=== PATIENT | female | born 1945 | race Caucasian/White ===

== ENCOUNTER → 2018-08-21 | Outpatient (CLI) | payer MEDICARE ==
--- NOTE | 2018-08-21 18:14 | Diagnostic Imaging Report ---
INDICATION: Intermittent left-sided pain FINDINGS: There is at least moderate severity lance colonic constipation. No findings of rectal impaction. No small bowel dilatation. IMPRESSION: Colonic constipation without overtly obstructive or impacted features. Dictated by: Dictated on workstation # [id number]
== END ==
LOC: RAD FS 15:32
PROVIDERS: ATTEND Nurse Practitioner Family
DX: K59.00 Constipation, unspecified (principal)
CPT/HCPCS: 74019

== ENCOUNTER 2018-09-26 21:02 | Emergency (ER) | payer MEDICARE ==
[~2018-09-26] VITALS: Ht 337.8 cm; Wt 84.8 kg
--- OUTSIDE RECORDS SUMMARY | 2018-09-26 21:06 | XMS REPORT ---
Author Author NIMISHA LINN [facility] Address Unknown Care Team Providers Care Cooperative Education Director Name Role Phone NIMISHA LINN Unavailable PROBLEMS Type Condition ICD9-CM Code [id number] Code Onset Dates Condition Status SNOMED Code Problem DTAP TEST V06.1 Active Assessment Dental examination Z01.20 Feb, Active [id number] ALLERGIES Substance Reaction Event Type Date Status Aspirin Unknown Drug Allergy Feb, Active SOCIAL HISTORY No smoking Hx information available PLAN OF CARE VITAL SIGNS Blood pressure systolic 143 mmHg 2016-02-23 Blood pressure diastolic 97 mmHg 2016-02-23 MEDICATIONS Medication Instructions Dosage Frequency Start Date End Date Duration Status Citalopram Hydrobromide Active Alprazolam Active Metoprolol Tartrate Active BuPROPion HCl (SR) Active Atorvastatin-Coenzyme Q10 Active RESULTS No Results PROCEDURES Procedure Date Ordered Related Diagnosis Body Site LTD ORAL EVALUATION - PROBLEM FOCUS Feb 23, 2016 PANORAMIC FILM SEE ALSO CODE [id number] Feb 23, 2016 IMMUNIZATIONS No Known Immunizations
--- OUTSIDE RECORDS SUMMARY | 2018-09-26 21:06 | XMS REPORT ---
Author Author NIMISHA LINN [facility] Address Unknown Care Team Providers Care Head Inspector Name Role Phone NIMISHA LINN Unavailable PROBLEMS Type Condition ICD9-CM Code [id number] Code Onset Dates Condition Status SNOMED Code Problem DTAP TEST V06.1 Active ALLERGIES No Information ENCOUNTERS Encounter Location Date Diagnosis [facility] [id number] [place] [address] [id number] Aug, Dental caries K02.9 [facility] [id number] [place] [address] [id number] Jul, Dental examination Z01.[id number] [place] [address] [id number] Jul, [facility] [id number] [place] [address] [id number] May, Dental caries K02.9 [facility] [id number] [place] [address] [id number] Feb, Dental examination Z01.20 [facility] [id number] [place] [address] [id number] Mar, Dental examination V72.[facility] [id number] [place] [phone] Jan, [facility] [id number] [place] [address] [id number] Jan, Dental examination V72.[facility] [id number] [place] [phone] Apr, IMMUNIZATIONS No Known Immunizations SOCIAL HISTORY Never Assessed REASON FOR VISIT PLAN OF CARE VITAL SIGNS MEDICATIONS Medication Instructions Dosage Frequency Start Date End Date Duration Status Valium 5 MG Orally 2 Tablets 1 hour prior appointment 2 Tablets night before treatment Jul, 1 days Active RESULTS No Results PROCEDURES No Known procedures INSTRUCTIONS MEDICATIONS ADMINISTERED No Known Medications MEDICAL (GENERAL) HISTORY Type Description Date Medical History Pneumonia Medical History surgery requiring rods, pins or screws Surgical History breast biopsy Surgical History hysterectomy Surgical History hernia Surgical History shoulder cuff Surgical History foot surgery- both feet Surgical History pancreas diverticulitis
--- OUTSIDE RECORDS SUMMARY | 2018-09-26 21:06 | XMS REPORT ---
Author Author NIMISHA LINN [facility] Address Unknown Care Team Providers Care Vessel Manager Name Role Phone NIMISHA LINN Unavailable PROBLEMS Type Condition ICD9-CM Code [id number] Code Onset Dates Condition Status SNOMED Code Problem DTAP TEST V06.1 Active Assessment Dental caries K02.9 May, Active [id number] ALLERGIES Substance Reaction Event Type Date Status Aspirin Unknown Drug Allergy May, Active SOCIAL HISTORY No smoking Hx information available PLAN OF CARE VITAL SIGNS Blood pressure systolic 128 mmHg 2016-05-10 Blood pressure diastolic 83 mmHg 2016-05-10 MEDICATIONS Unknown Medications RESULTS No Results PROCEDURES Procedure Date Ordered Related Diagnosis Body Site INTRAORL-PERIAPICAL 1 FILM [id number] May 10, 2016 INTRAORL-PERIAPICAL EA ADD FILM May 10, 2016 EXTRAC ERUPTED TOOTH/EXPOSED ROOT May 10, 2016 EXTRAC ERUPTED TOOTH/EXPOSED ROOT May 10, 2016 EXTRAC ERUPTED TOOTH/EXPOSED ROOT May 10, 2016 EXTRAC ERUPTED TOOTH/EXPOSED ROOT May 10, 2016 IMMUNIZATIONS No Known Immunizations
--- OUTSIDE RECORDS SUMMARY | 2018-09-26 21:06 | XMS REPORT ---
Author Author NIMISHA LINN Organization [facility] Address Unknown Care Team Providers Care Case Coordinator Name Role Phone NIMISHA LINN Unavailable PROBLEMS Type Condition ICD9-CM Code [id number] Code Onset Dates Condition Status SNOMED Code Problem DTAP TEST V06.1 Active ALLERGIES Substance Reaction Event Type Date Status Aspirin Unknown Drug Allergy Aug, Active SOCIAL HISTORY Never Assessed PLAN OF CARE Activity Details Follow Up 6 Weeks Reason:re-eval for maxime removal VITAL SIGNS Blood pressure systolic 136 mmHg 2016-09-01 Blood pressure diastolic 78 mmHg 2016-09-01 MEDICATIONS Medication Instructions Dosage Frequency Start Date End Date Duration Status Valium 5 MG Orally 2 Tablets 1 hour prior appointment 2 Tablets night before treatment Jul, 1 days Active Alprazolam Active BuPROPion HCl (SR) Active Metoprolol Tartrate Active Cranberry Active Centrum Silver Active Aspirin Active Atorvastatin-Coenzyme Q10 Active RESULTS No Results PROCEDURES Procedure Date Ordered Result Body Site EXTRAC ERUPTED TOOTH/EXPOSED ROOT Sep 01, 2016 EXTRAC ERUPTED TOOTH/EXPOSED ROOT Sep 01, 2016 EXTRAC ERUPTED TOOTH/EXPOSED ROOT Sep 01, 2016 EXTRAC ERUPTED TOOTH/EXPOSED ROOT Sep 01, 2016 EXTRAC ERUPTED TOOTH/EXPOSED ROOT Sep 01, 2016 EXTRAC ERUPTED TOOTH/EXPOSED ROOT Sep 01, 2016 EXTRAC ERUPTED TOOTH/EXPOSED ROOT Sep 01, 2016 EXTRAC ERUPTED TOOTH/EXPOSED ROOT Sep 01, 2016 EXTRAC ERUPTED TOOTH/EXPOSED ROOT Sep 01, 2016 EXTRAC ERUPTED TOOTH/EXPOSED ROOT Sep 01, 2016 EXTRAC ERUPTED TOOTH/EXPOSED ROOT Sep 01, 2016 IMMUNIZATIONS No Known Immunizations MEDICAL (GENERAL) HISTORY Type Description Date Medical History Pneumonia Medical History surgery requiring rods, pins or screws Surgical History breast biopsy Surgical History hysterectomy Surgical History hernia Surgical History shoulder cuff Surgical History foot surgery- both feet Surgical History pancreas diverticulitis
[2018-09-26] MEDS ORDERED: METOPROLOL TARTRATE 25 MG TAB (23:07)
[2018-09-26] MEDS ORDERED: BUPROPION HCL SR 150 MG TABLET (23:07)
[2018-09-26] MEDS ORDERED: MYRBETRIQ ER 50 MG TABLET (23:07)
[2018-09-26] MEDS ORDERED: ATORVASTATIN 20 MG TABLET (23:07)
[2018-09-26] MEDS ORDERED: ALENDRONATE SODIUM 70 MG TAB (23:07)
[2018-09-26] MEDS ORDERED: CITALOPRAM HBR 40 MG TABLET (23:08)
[2018-09-26] MEDS ORDERED: ASPI-999 (23:09)
[2018-09-26] MEDS ORDERED: MULT-1052 (23:09)
[2018-09-26] MEDS ORDERED: IBUPROFEN TABLET 200 MG TAB PO ONE (23:15)
--- NOTE | 2018-09-26 23:19 | ED Lower Extremity ---
General Chief Complaint: Lower Extremity Stated Complaint: LT LEG PAIN Nursing Triage Note: pt states left lower leg and ankle started hurting today, pt has not taken anything for pain, and no known trauma Nursing Sepsis Screen: No Definite Risk Source: patient, family Exam Limitations: no limitations History of Present Illness Date Seen by Provider: Sep 26, 2018 Time Seen by Provider: 22:50 Initial Comments Patient is a 73 year old who presents with intermittent lateral ankle pain earlier today. Pain is sporadic last for seconds at a times described as sharp and shooting. It is not worse with ambulation and movement or tendon palpation. No medications or therapy is taken prior to ED arrival. No other acute symptoms or complaints. Onset: this morning Pain/Injury Location: left ankle Method of Injury: unknown Allergies and Home Medications Allergies Coded Allergies: No Known Drug Allergies (Unverified , 09/26/18) Home Medications Aspirin 81 Mg Tab.chew, DAILY, (Reported) Patient Home Medication List Home Medication List Reviewed: Yes Review of Systems Constitutional: see HPI EENTM: no symptoms reported Respiratory: no symptoms reported Cardiovascular: no symptoms reported Gastrointestinal: no symptoms reported Genitourinary: no symptoms reported Musculoskeletal: see HPI Skin: no symptoms reported Past Luaafue-Addjqh-Cecxkg Hx Patient Social History Alcohol Use: Denies Use Recreational Drug Use: No Smoking Status: Never a Smoker 2nd Hand Smoke Exposure: No Recent Foreign Travel: No Contact w/Someone Who Travel: No Recent Infectious Disease Expo: No Physical Abuse: No Sexual Abuse: No Mistreated: No Fear: No Physical Exam Vital Signs Vital Signs - First Documented 09/26/18 23:09 Temp 97.7 Pulse 57 Resp 15 B/P (MAP) 129/74 (92) Pulse Ox 95 O2 Delivery Room Air Capillary Refill : Less Than 3 Seconds Height, Weight, BMI Height: 5'73.00" Weight: 187lbs. oz. 84.297338uu; BMI Method:Stated General Appearance: no apparent distress Ankles: left ankle non-tender, left ankle soft tissue tenderness, left ankle swelling (no erythema, warmth, pain on range of motion.) Neurologic/Tendon: normal sensation Neurologic/Psychiatric: no motor/sensory deficits Skin: normal color, warm/dry Progress/Results/Core Measures Results/Orders My Orders Orders - ASH HERNANDEZ DO Ibuprofen Tablet (Motrin Tablet) (09/26/18 23:15) Vital Signs/I&O 09/26/18 23:09 Temp 97.7 Pulse 57 Resp 15 B/P (MAP) 129/74 (92) Pulse Ox 95 O2 Delivery Room Air Blood Pressure Mean: 92 Departure Communication (Admissions) Reproducible soft tissue left ankle pain without injury or joint involvement Impression Primary Impression: Swollen L ankle Disposition: HOME, SELF-CARE Condition: Improved Departure-Patient Inst. Decision time for Depature: 23:19 Add. Discharge Instructions: Please wear compression wrap and take ibuprofen three time daily. Follow up wiith your PCP in 5-7 days for re-evaluation if symptoms continue. All discharge instructions reviewed with patient and/or family. Voiced understanding. ASH HERNANDEZ DO Sep 26, 2018 23:19
[2018-09-26 23:27] VITALS: BP 125/71
== END 2018-09-26 23:27 | disposition home or self-care (01) ==
LOC: EDUNIT# 21:02 → ER FS 21:03
DX: M25.472 Effusion, left ankle (principal); Z79.82 Long term (current) use of aspirin
CPT/HCPCS: 99283

== ENCOUNTER 2019-04-17 14:30 | Outpatient (CLI) | payer MEDICARE ==
[~2019-04-17] VITALS: Ht 162 cm; Wt 90.0 kg
[~2019-04-17 14:30] MED LIST: ALENDRONATE SODIUM 70 MG TAB; ASPI-999 PO; ATOR20TA66 PO; ATORVASTATIN 20 MG TABLET; BUPR150T7 PO; BUPROPION HCL SR 150 MG TABLET; CITA20TA9 PO; CITALOPRAM HBR 40 MG TABLET; METO-387 PO; METOPROLOL TARTRATE 25 MG TAB; MIRA50TA PO; MULT-1052; MULT-178 PO; MYRBETRIQ ER 50 MG TABLET
== END 2019-04-17 14:59 | disposition home or self-care (01) ==
LOC: PREOP 14:30
PROVIDERS: ATTEND Surgery
DX: Z01.818 Encounter for other preprocedural examination (principal)

== ENCOUNTER 2019-04-22 08:44 | Day surgery (SDC) | payer MEDICARE ==
[~2019-04-22] VITALS: Ht 165.1 cm; Wt 90.0 kg
[2019-04-22] MEDS ORDERED: LACTATED RINGERS 1,000 ML IV ONE (08:49)
[2019-04-22] MEDS ORDERED: LACTATED RINGERS 1,000 ML IV STA (08:55)
[2019-04-22] MEDS ORDERED: HURRICAINE EXT TUBE (BENZOCAINE) XX PRN (09:00)
[2019-04-22] MEDS ORDERED: OMEP40CA36 PO (09:12)
[2019-04-22 09:15] VITALS: BP 141/78
--- NOTE | 2019-04-22 09:24 | Progress Note-Pre Operative ---
Pre-Operative Progress Note H&P Reviewed The H&P was reviewed, patient examined and no changes noted. Time Seen by Provider: 09:21 Date H&P Reviewed: Apr 22, 2019 Time H&P Reviewed: 09:22 Pre-Operative Diagnosis: difficulty swallowing, hx of polyps, gastritis SKYLER MONGE DO Apr 22, 2019 09:23
[2019-04-22 09:45] VITALS: BP 164/76
[2019-04-22] MEDS ORDERED: proPOfol 200 MG/20 ML (DIPRIVAN) VIAL IV ONE (09:50)
[2019-04-22] MEDS ORDERED: HURRICAINE EXT TUBE (BENZOCAINE) ONE (09:58)
[2019-04-22 10:30] VITALS: BP 124/81
[2019-04-22 10:35] VITALS: BP 126/71
--- NOTE | 2019-04-22 10:37 | Progress Note-Post Operative ---
Post-Operative Progess Note Surgeon (s)/Ground Mixer (s) Surgeon SKYLER MONGE DO Ground Mixer: Nabila Carey MSIII Pre-Operative Diagnosis difficulty swallowing, hx of polyps, gastritis Post-Operative Diagnosis Gastritis Hiatal hernia Esophageal polyp diverticula internal Hemorrhoids Procedure & Operative Findings Date of Procedure 04/22/19 Procedure Performed/Findings EGD with BX Colonoscopy Anesthesia Type IV sedation by BIOINFORMATICS SUPPORT SPECIALIST Estimated Blood Loss Estimated blood loss (mL): scant Specimens/Packing Specimens Removed antral bx body of stomach bx GE jxn bx Bx of esophageal polyp SKYLER MONGE DO Apr 22, 2019 10:37
--- NOTE | 2019-04-22 10:39 | Endoscopy Discharge Instruct ---
Endo Procedure/Findings Findings 1.: Hiatal Hernia, Gastritis 2.: Diverticulosis 3.: Internal Hemorrhoids Discharge Instructions - Activity: You might feel a little sleepy until tomorrow. This is due to the medicine you received to relax you. Until tomorrow, you should: NOT drive a car, operate machinery or power tools. NOT drink any alcoholic beverages. NOT make any important decisions or sign importortant papers. Do not return to work until tomorrow, unless otherwise instructed. Resume previous activities tomorrow. Diet: Start by taking liquids. If you tolerate liquids, advance to solid food. make an appointment for one week 1.: Colonscopy in 10 years, EGD in 3 years Notify Physician - If you experience excessive bleeding, unusual abdominal pain, fever, or chest pain, contact your doctor immediately. SKYLER MONGE DO Apr 22, 2019 10:39
[2019-04-22 11:45] VITALS: BP 126/71
--- NOTE | 2019-04-22 14:32 | Anesthesia-General Post-Op ---
MAC Patient Condition Mental Status/LOC: Same as Preop Cardiovascular: Satisfactory Nausea/Vomiting: Absent Respiratory: Satisfactory Pain: Controlled Complications: Absent Post Op Complications Complications None Follow Up Care/Instructions Patient Instructions None needed. Anesthesiology Discharge Order Discharge Order Patient is doing well, no complaints, stable vital signs, no apparent adverse anesthesia problems. No complications reported per nursing. DEEPIKA MCKEON CRNA Apr 22, 2019 14:32
--- NOTE | 2019-04-22 15:00 | OPERATIVE REPORT ---
DATE OF SERVICE: 04/22/2019 PREOPERATIVE DIAGNOSES: Difficulty swallowing and gastritis as well as history of colon polyps. POSTOPERATIVE DIAGNOSES: 1. Gastritis. 2. Hiatal hernia. 3. Esophageal polyp. 4. Diverticula. 5. Internal hemorrhoids. PROCEDURES: 1. EGD with biopsy. 2. Colonoscopy. SURGEON: Geoffrey Holland DO FORKLIFT TRUCK MECHANIC: Nabila Carey, MS3 SPECIMEN: Biopsy from the antrum, biopsy of body of stomach, one biopsy from the GE junction and biopsy of esophageal polyp. BLOOD LOSS: Scant. FLUIDS: Per anesthesia. POSTOPERATIVE CONDITION: Stable. INDICATION FOR PROCEDURE: The patient is a 73-year-old female who has been having some difficulty swallowing, history of gastritis, and she has a history of colon polyps, needed an EGD and a colonoscopy. FINDINGS: The patient had some gastritis, large hiatal hernia, also had some polyps in the esophagus. Picture taken and biopsy done and the colon, diverticula and internal hemorrhoids were seen, but nothing else. PROCEDURE NOTE: After informed consent was obtained, the patient was brought to the endoscopy suite and placed in the left lateral decubitus position. She was administered IV sedation by the CONDUCTOR ORCHESTRA who then monitored her vitals the entire time, heart rate, blood pressure and pulse ox and the scope was inserted first doing EGD. Scope was inserted down the mouth through the esophagus into the stomach and the stomach looked like there was a little bit of blood, took a picture, pushed into the antrum, looked like some gastritis, pushed into the duodenum. Duodenum looked fine, took a picture. Pulled back into the antrum, did a biopsy of antrum, then did a biopsy of body of stomach, retroflexed, saw a large hiatal hernia, took a picture of this and then pulled the scope back up into the GE junction, did a biopsy of the GE junction. Suctioned the air out of the stomach and then saw esophageal polyp, took a picture of this and then did a biopsy. I then switched gloves, switched cameras, went down below and started the colonoscopy pushed the scope in all the way to about 150 cm, able to get to the cecum. On the way in, noted large diverticula throughout the sigmoid and descending colon, took picture of this. In the cecum, took a picture of appendiceal orifice, noted the ileocecal valve and then slowly withdrew the scope, insufflating to look circumferentially at the lopez, looking at the cecum up the ascending colon to the hepatic flexure, then down the transverse colon, splenic flexure, into the descending colon and down the sigmoid and finally in the rectum, retroflexed the rectal vault, saw some internal hemorrhoids, took a picture of this and then removed the scope. The patient tolerated the procedure, recovered in endoscopy suite. Job ID: [id number] DocumentID: [id number] Dictated Date: 04/22/2019 10:33:16 Editor & Co Founder Date: 04/22/2019 14:59:03 Dictated By: GEOFFREY HOLLAND DO
== END 2019-04-22 11:45 | disposition home or self-care (01) ==
LOC: ENDO 08:44
PROVIDERS: ATTEND Surgery
DX: K29.50 Unspecified chronic gastritis without bleeding (principal); K21.0 Gastro-esophageal reflux disease with esophagitis; K22.8 Other specified diseases of esophagus; K31.89 Other diseases of stomach and duodenum; K44.9 Diaphragmatic hernia without obstruction or gangrene; K57.30 Diverticulosis of large intestine without perforation or abscess without bleeding; K64.8 Other hemorrhoids; I10 Essential (primary) hypertension; E78.5 Hyperlipidemia, unspecified; G47.33 Obstructive sleep apnea (adult) (pediatric); M19.90 Unspecified osteoarthritis, unspecified site; F41.8 Other specified anxiety disorders; Z86.010 Personal history of colon polyps; Z79.899 Other long term (current) drug therapy; Z79.82 Long term (current) use of aspirin; Z90.710 Acquired absence of both cervix and uterus; Z82.49 Family history of ischemic heart disease and other diseases of the circulatory system

== ENCOUNTER → 2019-11-14 | Outpatient (CLI) | payer MEDICARE ==
[~2019-11-14] MED LIST changes: -METO-387 PO; +MTP25TSR PO; +OMEP40CA27 PO
--- NOTE | 2019-11-14 13:10 | Diagnostic Imaging Report ---
INDICATION: Hypertension, dyspnea. COMPARISON: None available TECHNIQUE: 2 radiographs of the chest dated 11/14/2019 FINDINGS: The cardiac silhouette is within normal limits in size. No significant pulmonary vascular congestion. Mild linear bibasilar interstitial opacities. The lungs are otherwise clear. No significant pleural effusion. No pneumothorax. Postsurgical changes within the left shoulder. No acute osseous abnormality. IMPRESSION: Mild bibasilar scarring and/or atelectasis. Dictated by: Dictated on workstation # [id number]
== END ==
LOC: RAD FS 12:38
PROVIDERS: ATTEND Internal Medicine Cardiovascular Disease
DX: I10 Essential (primary) hypertension (principal); E78.2 Mixed hyperlipidemia; R06.00 Dyspnea, unspecified; R07.9 Chest pain, unspecified; R91.8 Other nonspecific abnormal finding of lung field
CPT/HCPCS: 71046

== ENCOUNTER → 2019-11-25 | Outpatient (CLI) | payer MEDICARE ==
[~2019-11-25] VITALS: Ht 167 cm; Wt 93.0 kg
[~2019-11-25] MED LIST changes: +REGADENOSON 0.4 MG/5 ML SYR (LEXISCAN) IV ONE
[2019-11-25] MEDS: CATHETER FLUSH 10 ML SYR IV PRN ×2 (08:05→09:19)
[2019-11-25 09:10] VITALS: BP 143/83
--- NOTE | 2019-11-25 13:37 | STRESS TEST ---
DATE OF SERVICE: 11/25/2019 LEXISCAN MYOVIEW STRESS TEST REPORT REFERRING PHYSICIAN: Dr. Hiram Birch. Baseline heart rate is 66. Baseline blood pressure 143/83. Baseline EKG is sinus rhythm with occasional PVCs. In summary, the patient was injected with 10.19 mCi of technetium-99 Myoview and the resting images were obtained. Then, the patient received 0.4 mg of Lexiscan followed by 31.2 mCi of technetium-99 Myoview. Throughout the test, the patient was asymptomatic, had transient episode of ventricular trigeminy. No ischemic changes. The resting and stress images were reviewed and compared in the short axis, horizontal long axis, and vertical long axis views. Review of the images showed good radiotracer uptake with no significant ischemia or infarction. There is mild increase in intestinal uptake, affecting the basal to mid inferolateral wall. SSS is 4, SDS 0, TID value 1.18. On the gated images, the left ventricle appeared to be normal size with normal contractility. Calculated ejection fraction 63%. CONCLUSION: 1. The patient tolerated Lexiscan well. 2. Fixed defect at the basal to mid inferolateral wall with no significant ischemia or infarction on SPECT images. 3. Normal left ventricular size with normal contractility. Calculated ejection fraction 63%. Job ID: [id number] DocumentID: [id number] Dictated Date: 11/25/2019 11:04:23 In Processing Instructor Date: 11/25/2019 13:36:39 Dictated By: RIC NICOLE MD
== END ==
LOC: CARD 07:56
PROVIDERS: ATTEND Internal Medicine Cardiovascular Disease
DX: I10 Essential (primary) hypertension (principal); E78.2 Mixed hyperlipidemia; R06.00 Dyspnea, unspecified; R07.9 Chest pain, unspecified
CPT/HCPCS: 78452; 93017

== ENCOUNTER → 2019-11-28 | Outpatient (CLI) | payer MEDICARE ==
[~2019-11-28] MED LIST changes: -REGADENOSON 0.4 MG/5 ML SYR (LEXISCAN) IV ONE
== END ==
LOC: CARD 13:36
PROVIDERS: ATTEND Internal Medicine Cardiovascular Disease
DX: I08.1 Rheumatic disorders of both mitral and tricuspid valves (principal); I10 Essential (primary) hypertension; E78.2 Mixed hyperlipidemia
CPT/HCPCS: 93306

== ENCOUNTER → 2021-02-16 | Outpatient (CLI) | payer MEDICARE ==
[~2021-02-16] MED LIST changes: +BUPR150T24 PO; -BUPR150T7 PO; -OMEP40CA27 PO; +OMEP40CA6 PO
--- NOTE | 2021-02-16 14:21 | Diagnostic Imaging Report ---
INDICATION: 75 year-old asymptomatic postmenopausal female. COMPARISON: None available. FINDINGS: AP Spine L1-L4: [BMD (g/cm2): 0.504] [T-Score: -5.8] [Z-Score: -4.9] [BMD Previous: NA] [BMD % Change: NA] LT Hip Neck: [BMD (g/cm2): 0.586] [T-Score: -3.3] [Z-Score: -1.8] LT Hip Total: [BMD (g/cm2):0.689] [T-Score:-2.5] [Z-Score: -1.3] [BMD Previous: NA] [BMD % Change: NA] RT Hip Neck: [BMD (g/cm2):0.649] [T-Score:-2.8] [Z-Score:-1.4] RT Hip Total: [BMD (g/cm2):0.714] [T-score:-2.3] [Z-Score:-1.1] [BMD Previous:NA] [BMD % Change:NA] *Indicates significant change from prior examination based on 95% confidence level. World Health Organization criteria for BMD interpretation classify patients as Normal (T-score at or above -1.0), Osteopenic (T-score between -1.0 and -2.5) or Osteoporotic (T-score at or below -2.5). LIMITATIONS AND MODIFICATION: None. FRACTURE RISK (FRAX SCORE): Not applicable as patient meets criteria for osteoporosis. IMPRESSION: 1. Osteoporosis. 2. Baseline examination. 3. See below National Osteoporosis Foundation guidelines on when to potentially initiate pharmacologic therapy. Based on the National Osteoporosis Foundation Guidelines, pharmacologic treatment should be initiated in any of the following, unless clinical conditions suggest otherwise: * Any patient with prior fragility fracture of the hip or vertebrae. A spine fracture indicates 5X risk for subsequent spine fracture and 2X risk for subsequent hip fracture. * Osteoporosis (T-score <-2.5). * Postmenopausal women and men age 50 and older with low bone mass/osteopenia (T-score between -1.0 and -2.5) by DXA and 10-year major osteoporotic fracture greater than 20% or a 10-year probability of hip fracture greater than 3%. These fracture risks are supplied above in the FRAX score, if applicable. * Clinician judgement and/or patient preferences may indicate treatment for people with 10-year fracture probabilities above or below these levels. Dictated by: Dictated on workstation # [id number]
== END ==
LOC: RAD 10:30
PROVIDERS: ATTEND Family Medicine
DX: M81.0 Age-related osteoporosis without current pathological fracture (principal); Z78.0 Asymptomatic menopausal state
CPT/HCPCS: 77080

== ENCOUNTER 2021-10-10 11:13 | Emergency (ER) | payer MEDICARE ==
[2021-10-10 11:28] LABS: BASOPHILS % (AUTO) 1 % (0-10); EOSINOPHILS % (AUTO) 0 % (0-10); HEMATOCRIT 44 % (35-52); HEMOGLOBIN 14.1 g/dL (11.5-16.0); LYMPHOCYTES # (AUTO) 0.8 10^3/uL (1.0-4.0); LYMPHOCYTES % (AUTO) 9 % (12-44); MEAN CORPUSCULAR HEMOGLOBIN 31 pg (25-34); MEAN CORPUSCULAR HGB CONC 32 g/dL (32-36); MEAN CORPUSCULAR VOLUME 96 fL (80-99); MEAN PLATELET VOLUME 9.5 fL (9.0-12.2); MONOCYTES # (AUTO) 0.5 10^3/uL (0.0-1.0); MONOCYTES % (AUTO) 6 % (0-12); NEUTROPHILS % (AUTO) 84 % (42-75); PLATELET COUNT 157 10^3/uL (130-400); WHITE BLOOD COUNT 8.3 10^3/uL (4.3-11.0)
--- NOTE | 2021-10-10 11:35 | ED General ---
General Chief Complaint: General Problems/Pain Stated Complaint: AMS Source of Information: Patient, EMS, Family (son), Old Records History of Present Illness Date Seen by Provider: Oct 10, 2021 Time Seen by Provider: 11:13 Initial Comments 76-year-old female presenting with complaints of increased confusion this morning. EMS reports that when her son first woke her up this morning she was trying to use her hand to make a phone call. She was able to be more oriented as she woke up more. She had a low grade fever of 100.2 F at home. She has had some loose stools and discomfort with urination and increased urination. However, she reports drinking more water and thinks that is why she is urinating more. She has occasional cough but does not feel that she is short of breath. She denies pain anywhere. She denies headache, chest pain, abdominal pain, arm/leg pain. Timing/Duration: 1-3 Hours Severity: Mild Associated Systoms: No Chest Pain; Cough (mild intermittent); No Diaphoresis; Fever/Chills (low grade temperature); No Headaches, No Loss of Appetite, No Malaise, No Nausea/Vomiting, No Rash, No Seizure, No Shortness of Air, No Syncope, No Weakness Allergies and Home Medications Allergies Coded Allergies: No Known Drug Allergies (Unverified , 04/17/19) Patient Home Medication List Home Medication List Reviewed: Yes Aspirin (Aspirin) 81 Mg Tab.chew, 81 MG PO DAILY, (Reported) Entered as Reported by: HERNANDEZ CHEN on 09/26/18 230 Atorvastatin Calcium (Atorvastatin Calcium) 20 Mg Tablet, 20 MG PO DAILY, (Reported) Entered as Reported by: DARWIN SIM on 04/17/19 1324 Azithromycin (Azithromycin) 250 Mg Tablet, 250 MG PO DAILY Prescribed by: MOOKIE ORTEGA on 10/10/21 1236 Bupropion HCl (Bupropion Xl) 150 Mg Tab.er.24h, 150 MG PO BID, (Reported) Entered as Reported by: DARWIN SIM on 04/17/19 1324 Cephalexin (Cephalexin) 500 Mg Capsule, 500 MG PO TID Prescribed by: MOOKIE ORTEGA on 10/10/21 1236 Citalopram Hydrobromide (Citalopram HBr) 20 Mg Tablet, 20 MG PO DAILY, (Reported) Entered as Reported by: DARWIN SIM on 04/17/19 1324 Metoprolol Succinate (Metoprolol Succinate) 25 Mg Tab.er.24h, 12.5 MG PO BID, (Reported) Entered as Reported by: DARWIN SIM on 04/17/19 1324 Mirabegron (Myrbetriq) 50 Mg Tab.er.24h, 50 MG PO DAILY, (Reported) Entered as Reported by: DARWIN SIM on 04/17/19 1324 Multivitamin (Multiple Vitamins) 1 Each Tablet, 1 EACH PO DAILY, (Reported) Entered as Reported by: DARWIN SIM on 04/17/19 1314 Omeprazole (Omeprazole) 40 Mg Capsule.dr, 40 MG PO DAILY, (Reported) Entered as Reported by: CATALINA MIKE on 04/22/19 0912 Review of Systems Review of Systems Constitutional: No chills, No diaphoresis, No dizziness; fever (low grade at home) EENTM: no symptoms reported Respiratory: see HPI Cardiovascular: No chest pain, No palpitations Gastrointestinal: No abdominal pain; diarrhea (loose stool yesterday); No nausea, No vomiting Genitourinary: dysuria, frequency Musculoskeletal: no symptoms reported Skin: No rash Psychiatric/Neurological: Denies Headache Past Soytmul-Xuetca-Lamgxq Hx Patient Social History Tobacco Use?: No Use of E-Cig and/or Vaping dev: Yes E-Cig or Vaping type used: Other Use of E-Cig and/or Vaping Delio: Light User Substance use?: No Alcohol Use?: No Seasonal Allergies Seasonal Allergies: No Past Medical History Surgeries: Yes (BREAST BIOSPY, ROTATOR CUFF, HERNIA REPAIR) Gallbladder, Hysterectomy Respiratory: Yes Sleep Apnea Currently Using CPAP: No Cardiac: Yes High Cholesterol, Hypertension Neurological: No Sexually Transmitted Disease: No HIV/AIDS: No Genitourinary: No Gastrointestinal: Yes Chronic Constipation Musculoskeletal: Yes Osteoporosis, Arthritis Endocrine: No HEENT: Yes (GLASSES) Loss of Vision: Denies Hearing Impairment: Denies Cancer: No Psychosocial: Yes Depression Integumentary: No Blood Disorders: No Adverse Reaction/Blood Tranf: No (N/A) Physical Exam Vital Signs Vital Signs - First Documented 10/10/21 11:17 Temp 37.7 Pulse 80 Resp 18 B/P (MAP) 110/62 (78) Pulse Ox 92 O2 Delivery Room Air Capillary Refill : Height, Weight, BMI Height: 5'73.00" Weight: 187lbs. oz. 84.917357pu; 33.34 BMI Method:Stated General Appearance: No Apparent Distress, Chronically ill (severe kyphosis) HEENT: Pharynx Normal Neck: Non Tender Respiratory: Chest Non Tender, No Accessory Muscle Use, No Respiratory Distress, Decreased Breath Sounds Cardiovascular: Regular Rate, Rhythm, Normal Peripheral Pulses Gastrointestinal: Normal Bowel Sounds, No Pulsatile Mass, Non Tender, Soft Rectal: Deferred Extremity: Normal Capillary Refill, No Calf Tenderness, Pedal Edema (1+ BLE) Neurologic/Psychiatric: Alert, Oriented x3, recreation therapy aides teacher II-XII Norm as Tested Skin: Normal Color, Warm/Dry Focused Exam Lactate Level 10/10/21 11:23: Lactic Acid Level 1.08 Lactic Acid Level Laboratory Tests Test 10/10/21 11:23 Lactic Acid Level 1.08 MMOL/L (0.50-2.00) Progress/Results/Core Measures Suspected Sepsis SIRS Temperature: Pulse: Respiratory Rate: Laboratory Tests 10/10/21 11:23: White Blood Count 8.3 Blood Pressure / Mean: 10/10/21 11:23: Lactic Acid Level 1.08 Laboratory Tests 10/10/21 11:23: Creatinine 1.06, Platelet Count 157, Total Bilirubin 0.6 Results/Orders Lab Results Laboratory Tests Test 10/10/21 11:23 10/10/21 11:43 Range/Units White Blood Count 8.3 4.3-11.0 10^3/uL Red Blood Count 4.55 3.80-5.11 10^6/uL Hemoglobin 14.1 11.5-16.0 g/dL Hematocrit 44 35-52 % Mean Corpuscular Volume 96 80-99 fL Mean Corpuscular Hemoglobin 31 25-34 pg Mean Corpuscular Hemoglobin Concent 32 32-36 g/dL Red Cell Distribution Width 13.6 10.0-14.5 % Platelet Count 157 130-400 10^3/uL Mean Platelet Volume 9.5 9.0-12.2 fL Immature Granulocyte % (Auto) 1 % Neutrophils (%) (Auto) 84 H 42-75 % Lymphocytes (%) (Auto) 9 L 12-44 % Monocytes (%) (Auto) 6 0-12 % Eosinophils (%) (Auto) 0 0-10 % Basophils (%) (Auto) 1 0-10 % Neutrophils # (Auto) 7.0 1.8-7.8 10^3/uL Lymphocytes # (Auto) 0.8 L 1.0-4.0 10^3/uL Monocytes # (Auto) 0.5 0.0-1.0 10^3/uL Eosinophils # (Auto) 0.0 0.0-0.3 10^3/uL Basophils # (Auto) 0.0 0.0-0.1 10^3/uL Immature Granulocyte # (Auto) 0.0 0.0-0.1 10^3/uL Sodium Level 136 135-145 MMOL/L Potassium Level 3.9 3.6-5.0 MMOL/L Chloride Level 106 98-107 MMOL/L Carbon Dioxide Level 20 L 21-32 MMOL/L Anion Gap 10 5-14 MMOL/L Blood Urea Nitrogen 14 7-18 MG/DL Creatinine 1.06 0.60-1.30 MG/DL Estimat Glomerular Filtration Rate 54 BUN/Creatinine Ratio 13 Glucose Level 105 70-105 MG/DL Lactic Acid Level 1.08 0.50-2.00 MMOL/L Calcium Level 9.7 8.5-10.1 MG/DL Corrected Calcium 10.0 8.5-10.1 MG/DL Total Bilirubin 0.6 0.1-1.0 MG/DL Aspartate Amino Transf (AST/SGOT) 85 H 5-34 U/L Alanine Aminotransferase (ALT/SGPT) 47 0-55 U/L Alkaline Phosphatase 135 40-136 U/L C-Reactive Protein 0.53 H <0.50 MG/DL Total Protein 5.7 L 6.4-8.2 GM/DL Albumin 3.6 3.2-4.5 GM/DL Influenza Type A Antigen NEGATIVE NEGATIVE Influenza Type B Antigen NEGATIVE NEGATIVE Urine Color YELLOW Urine Clarity CLOUDY Urine pH 6.0 5-9 Urine Specific [place] 1.020 1.016-1.022 Urine Protein NEGATIVE NEGATIVE Urine Glucose (UA) NEGATIVE NEGATIVE Urine Ketones NEGATIVE NEGATIVE Urine Nitrite POSITIVE H NEGATIVE Urine Bilirubin NEGATIVE NEGATIVE Urine Urobilinogen 0.2 < = 1.0 MG/DL Urine Leukocyte Esterase 1+ H NEGATIVE Urine RBC (Auto) NEGATIVE NEGATIVE Urine RBC NONE /HPF Urine WBC 10-25 H /HPF Urine Crystals NONE /LPF Urine Bacteria LARGE H /HPF Urine Casts NONE /LPF Urine Mucus NEGATIVE /LPF Urine Culture Indicated YES My Orders Orders - MOOKIE ORTEGA MD Cbc With Automated Diff (10/10/21 11:21) Comprehensive Metabolic Panel (10/10/21 11:21) Blood Culture (10/10/21 11:21) Ua Culture If Indicated (10/10/21 11:21) Chest 1 View Ap/Pa Only (10/10/21 11:21) Ed Iv/Invasive Line Start (10/10/21 11:21) Crp Fs (10/10/21 11:21) Lactic Acid Analyzer (10/10/21 11:21) Covid 19 Inhouse Test (10/10/21 11:21) Influenza A & B Antigens (10/10/21 11:21) Isolation Central Supply Req (10/10/21 11:21) Urine Culture (10/10/21 11:43) Ceftriaxone 1 Gm Pre-Mix (Rocephin 1 Gm (10/10/21 12:22) Azithromycin Tablet (Zithromax Tablet) (10/10/21 12:22) Vital Signs/I&O 10/10/21 10/10/21 11:17 12:40 Temp 37.7 37.7 Pulse 80 77 Resp 18 18 B/P (MAP) 110/62 (78) 109/45 Pulse Ox 92 91 O2 Delivery Room Air Room Air Capillary Refill : Progress Note #1: Progress Note Obtain basic labs, blood cultures, lactic acid, chest x-ray, urinalysis. Evaluate for possible UTI or pneumonia. Progress Note #2: Progress Note Labs show stable CBC. Her white blood cell count is 8.3. Her chemistry panel did not show acute significant abnormality other than mild elevation of her CRP. Her lactic acid was normal. Urinalysis was positive for nitrates and signs of UTI. Chest x-ray showed severe kyphosis with bilateral lower lobe infiltrate. However, with her not having cough or shortness of breath this may be partly due to her kyphosis rather than true infiltrate. will choose antibiotics that would cover for both urine and lung. Pt and son wanted to try things at home with antibiotics prior to considering admit to hospital. If she has worsening symptoms or is not stable and [place] then return or seek care at Hospital for admit to continue antibiotics and fluids. Diagnostic Imaging Diagonstic Imaging: Xray Plain Films/CT/US/NM/MRI: chest Comments NAME: YASH ARSHAD [facility] REC#: [id number] PT STATUS: REG ER : 1945 PHYSICIAN: MOOKIE ORTEGA MD ADMIT DATE: 10/10/21/ER FS Draft Date of Exam:10/10/21 CHEST 1 VIEW AP/PA ONLY INDICATION: Fever and confusion. Extremely kyphotic. EXAMINATION: Chest, 2 views, on 10/10/2021. FINDINGS: There is bibasilar infiltrate, left worse than right. No significant effusion is appreciated. There is cardiomegaly. The pulmonary vasculature is normal. Chronic changes are seen in the upper lungs. No obvious pneumothorax with the lung apices poorly evaluated due to patient's overlying chin. IMPRESSION: Bibasilar infiltrates, left worse than right, with otherwise chronic changes as above. Dictated on workstation # [id number] Dict: 10/10/21 1143 Trans: 10/10/21 1149 [id number] Interpreted by: JOSÉ LINDSAY MD Electronically signed by: Reviewed: Reviewed by Me Departure Impression Primary Impression: Acute cystitis without hematuria Additional Impressions: Transient confusion Low grade fever Bilateral pulmonary infiltrates on chest x-ray Disposition: 01 HOME, SELF-CARE Condition: Stable Departure-Patient Inst. Decision time for Depature: 12:36 Referrals: DANILO ANNA MD (PCP) Primary Care Physician Patient Instructions: Urinary Tract Infection, Adult ED, Pneumonia, Adult ED Add. Discharge Instructions: Encourage fluids and hydration. Take the full course of antibiotics to treat for urine infection and in case the findings from the chest xray do indicate the start of a pneumonia or lung infection will have medicine that covers for infection in urine and lung. Check with clinic for continued concerns or if having worsening symptoms/problems return or seek medical care for further evaluation All discharge instructions reviewed with patient and/or family. Voiced understanding. Scripts Cephalexin (Cephalexin) 500 Mg Capsule 500 MG PO TID for UTI for 7 Days, #21 CAP 0 Refills Prov: MOOKIE ORTEGA MD 10/10/21 Azithromycin (Azithromycin) 250 Mg Tablet 250 MG PO DAILY for pneumonia for 4 Days, #4 TAB 0 Refills Prov: MOOKIE ORTEGA MD 10/10/21 MOOKIE ORTEGA MD Oct 10, 2021 11:35
[2021-10-10 11:44] LABS: BILIRUBIN,URINE NEGATIVE (NEGATIVE); COLOR,URINE YELLOW; GLUCOSE, URINE (UA) NEGATIVE (NEGATIVE); KETONES,URINE NEGATIVE (NEGATIVE); LEUKOCYTE ESTERASE ,URINE 1+ (NEGATIVE); NITRITE,URINE POSITIVE (NEGATIVE); PROTEIN,URINE NEGATIVE (NEGATIVE)
[2021-10-10 11:48] LABS: BACTERIA,URINE LARGE /HPF; CLARITY,URINE CLOUDY
[2021-10-10 11:50] LABS: ALBUMIN 3.6 GM/DL (3.2-4.5); BILIRUBIN,TOTAL 0.6 MG/DL (0.1-1.0); CALCIUM 9.7 MG/DL (8.5-10.1); CREATININE SERUM 1.06 MG/DL (0.60-1.30); POTASSIUM 3.9 MMOL/L (3.6-5.0); TOTAL PROTEIN 5.7 GM/DL (6.4-8.2)
--- NOTE | 2021-10-10 11:50 | Diagnostic Imaging Report ---
INDICATION: Fever and confusion. Extremely kyphotic. EXAMINATION: Chest, 2 views, on 10/10/2021. FINDINGS: There is bibasilar infiltrate, left worse than right. No significant effusion is appreciated. There is cardiomegaly. The pulmonary vasculature is normal. Chronic changes are seen in the upper lungs. No obvious pneumothorax with the lung apices poorly evaluated due to patient's overlying chin. IMPRESSION: Bibasilar infiltrates, left worse than right, with otherwise chronic changes as above. Dictated by: Dictated on workstation # [id number]
[2021-10-10] MEDS ORDERED: cefTRIAXone 1 GM PRE-MIX 50 ML IV STA (12:22)
[2021-10-10] MEDS ORDERED: AZITHROMYCIN 250 MG TAB (ZITHROMAX) PO STA (12:22)
[2021-10-10] MEDS ORDERED: AZIT250T12 PO (12:36)
[2021-10-10] MEDS ORDERED: CEPH500C PO (12:36)
[2021-10-10 12:40] VITALS: BP 109/45
== END 2021-10-10 13:01 | disposition home or self-care (01) ==
LOC: EDUNIT# 11:13 → ER FS 11:15
DX: N30.00 Acute cystitis without hematuria (principal); R41.0 Disorientation, unspecified; R91.8 Other nonspecific abnormal finding of lung field; Z20.822 Contact with and (suspected) exposure to COVID-19
CPT/HCPCS: 36415; 71045; 80053; 81000; 83605; 85025; 86141; 87040; 87077; 87088; 87186; 87636; 87804

== ENCOUNTER → 2022-07-19 | Outpatient (CLI) | payer MEDICARE ==
[~2022-07-19] MED LIST changes: +AZIT250T12 PO; +CEPH500C PO
== END ==
LOC: CARDFS 11:51
PROVIDERS: ATTEND Family Medicine
DX: I51.7 Cardiomegaly (principal); I35.1 Nonrheumatic aortic (valve) insufficiency
CPT/HCPCS: 93306